=== PATIENT | male | born 1945 | race Caucasian/White ===

== ENCOUNTER 2024-11-23 08:25 | Day surgery (SDC) | payer OTHER ==
[~2024-11-23] VITALS: Ht 177.8 cm; Wt 88.0 kg
[~2024-11-23 08:25] MED LIST: ATORVASTATIN CA40 MG PO; IBLOOD GLUCOSE TEST STRIP 1 EA TEST VI PRN; LACTATED RINGER'S 1,000 ML IV SCH; LIDOCAINE HCL 1% 5 ML SDV INJ ONE; MIDAZOLAM HCL 5 MG/5 ML VIAL IV PRN; fentaNYL citrate 100 MCG/2 ML VIAL IV PRN
[2024-11-23 08:51] VITALS: BP 133/66
[2024-11-23] MEDS ORDERED: BEET ROOT500 MG PO (08:55)
[2024-11-23] MEDS ORDERED: ZINC50 MG PO (08:56)
[2024-11-23] MEDS ORDERED: MAGNESIUM250 M1 PO (08:56)
[2024-11-23] MEDS ORDERED: COQ-10100 MG PO (08:56)
[2024-11-23] MEDS ORDERED: COD LIVER OIL1 EAC1 PO (08:56)
[2024-11-23] MEDS ORDERED: VITAMIN D325 MC2 PO (08:56)
[2024-11-23] MEDS ORDERED: MK-790 MCG PO (08:57)
[2024-11-23] MEDS ORDERED: fentaNYL citrate 100 MCG/2 ML VIAL ONE (09:39)
[2024-11-23] MEDS ORDERED: MIDAZOLAM HCL 5 MG/5 ML VIAL ONE (09:39)
--- NOTE | 2024-11-23 10:32 | NUR ---
11/23/24 1032 [address] Stacy 1022 PT ARRVIED TO PACU ON RA, PT WAKES EASILY AND IS REORIENTED TO PACU. VSS. PT DENIES PAIN AND NAUSEA. PT EASILY FALLS BACK TO SLEEP. 1026 O2 SAT 88% AND 2L NC PLACE, DEEP BREATHING ENCOURAGED AND PT ABLE TO WAKE EASILY AND DEEP BREATHE WHEN ASKED. O2 INCREASED TO HIGH 90S. 1028 PLAN OF CARE DISCUSSED.
[2024-11-23 10:47] VITALS: BP 122/63
--- NOTE | 2024-11-24 06:03 | OR ---
[facility] [address], [place] [address] Signed DATE OF OPERATION: 11/23/2024 SURGEON: Jacqueline Glover MD PREOPERATIVE DIAGNOSIS: 1. Personal history of hyperplastic polyps in 2013 at age 69. 2. Hemorrhoids. POSTOPERATIVE DIAGNOSES: 1. Moderate grade 2 internal hemorrhoids. 2. Minimal sigmoid diverticulosis. 3. 4 mm polyp at 8 cm in rectum. 4. 4 mm polyp at 22 cm in sigmoid colon. PROCEDURE: Colonoscopy with hot biopsy. ESTIMATED BLOOD LOSS: None. INDICATIONS: Truong is a 79-year-old gentleman, who was asked to see me for his third colonoscopy. He actually has excellent functional status and looks younger than his stated age. He had his first colonoscopy in 2009 at the age of 65 at the [facility]. He went back to the [place], had a followup colonoscopy in 2013 at the age of 69. It sounds like he had three hyperplastic polyps removed and some hemorrhoids were noted. He was told to follow up in 10 years. Unfortunately, we were not able to obtain either one of those reports. He said he has no lower GI complaints. There is no family history of colon cancer or polyps. In the office, I gave him a pamphlet on colonoscopy. We had reviewed the nature of the test. There is risk including, but not limited to gas bloating, crampy abdominal pain, bleeding, perforation requiring surgery, and missed diagnosis. We also reviewed the written instructions for the bowel prep line by line. He also understands the need for IV sedation. He said his neighbor would be taking him home. He told me it was okay to discuss results with his neighbor. He had expressed understanding and wished to proceed. DESCRIPTION OF PROCEDURE: Truong was taken into our endoscopy suite and placed in the left lateral decubitus position. He was given a total of 4 mg of Versed and 150 mcg fentanyl to cover the case. A digital rectal exam was performed. He had a couple of grade 2 internal Electronically Signed By: JACQUELINE GLOVER MD 11/24/24 0603 PATIENT NAME: TRUONG GUEVARA OPERATIVE REPORT DATE OF : 45 REPORT #: [id number] PHYSICIAN: JACQUELINE GLOVER MD PCP: NO PRIMARY CARE PHYSICIAN REPORT IS CONFIDENTIAL AND NOT TO BE RELEASED WITHOUT AUTHORIZATION [facility] [address], [place] [address] Signed hemorrhoids that spontaneously reduced. He had good sphincter tone. There were no masses. The adult colonoscope was introduced and advanced all the way around into the cecum under direct visualization of camera. It took a little extra sedation and moving Truong into the supine position with abdominal compression to get the camera directly into the cecum itself. His prep was good. The scope was then slowly withdrawn. We could easily see the appendiceal orifice and ileocecal valve. We took pictures throughout for photodocumentation. We noticed just a few diverticula in the sigmoid colon. They were small in size, few in number and scattered about. The two polyps mentioned above were easily removed with the help of hot biopsy forceps. Upon retroflexion of scope we could see he has moderate internal hemorrhoid columns. After this, the gas was suctioned out, colonoscope removed. Truong tolerated the procedure quite well. RECOMMENDATIONS: I will see Truong back in my office in 7 to 14 days to review his results. These appeared to be hyperplastic polyps currently. Jacqueline Glover MD ALB/MODL /[id number] cc: [place], [place] Patient Chart Jacqueline Glover MD Copies: JACQUELINE GLOVER MD ~ Electronically Signed By: JACQUELINE GLOVER MD 11/24/24 0603 PATIENT NAME: TRUONG GUEVARA [place] OPERATIVE REPORT DATE OF : 45 REPORT #: [id number] PHYSICIAN: JACQUELINE GLOVER MD PCP: NO PRIMARY CARE PHYSICIAN REPORT IS CONFIDENTIAL AND NOT TO BE RELEASED WITHOUT AUTHORIZATION
--- NOTE | 2024-11-25 16:38 | PATH ---
[facility] [address] [facility] [place], [place] [address] Signed SPECIMEN(S): A RECTAL POLYP AT 6 CM SPECIMEN(S): B SIGMOID POLYP AT 22 CM SPECIMEN SOURCE: A. RECTAL POLYP AT 6 CM B. SIGMOID POLYP AT 22 CM CLINICAL HISTORY: History of polyps FINAL PATHOLOGIC DIAGNOSIS: A. Rectal polyp at 6 cm: - Hyperplastic polyp (one fragment). B. Sigmoid polyp at 22 cm: - Hyperplastic polyp (one fragment). JVR:clv MICROSCOPIC EXAMINATION: Histologic sections of all submitted blocks are examined by light microscopy. These findings, together with the gross examination, support the pathologic diagnosis. GROSS DESCRIPTION: A. The specimen, labeled and designated "Paola, rectal polyp at 6 cm," is received in formalin and consists of one arreaga soft tissue fragment, 0.3 cm. Entirely submitted in (A1). B. The specimen, labeled and designated "Paola, sigmoid polyp at 22 cm," is received in formalin and consists of one arreaga soft tissue fragment, 0.3 cm. Entirely submitted in (B1). VB (under the direct supervision of a pathologist) The Gross Description was prepared using a voice recognition system. The report was reviewed for accuracy; however, sound-alike word errors, addition and/or deletions may occur. If there is any question about this report, please contact Client Services. PERFORMING LABORATORY: Technical component was performed by [facility], [address] [place] [id number] (CLIA# [id number]). Professional interpretation was performed by [email or web address], [address] [place] [id number] (CLIA#: [id number]). PATIENT NAME: OSIRIS GUEVARA [place] [facility] DATE OF : 45 REPORT #: [id number] PHYSICIAN: [facility] PCP: NO PRIMARY CARE PHYSICIAN REPORT IS CONFIDENTIAL AND NOT TO BE RELEASED WITHOUT AUTHORIZATION [address] [place], [place] [address] Signed Diagnostician: Joe Farr MD Pathologist Electronically Signed 11/25/2024 Copies: ~ PATIENT NAME: PAOLAOSIRIS PATHOLOGY DATE OF : 45 REPORT #: [id number] PHYSICIAN: [facility] PCP: NO PRIMARY CARE PHYSICIAN REPORT IS CONFIDENTIAL AND NOT TO BE RELEASED WITHOUT AUTHORIZATION
== END 2024-11-23 11:09 | disposition home or self-care (01) ==
LOC: DS 08:25
PROVIDERS: ATTEND Colon & Rectal Surgery
PROC: 0DBN8ZX Excision of Sigmoid Colon, Via Natural or Artificial Opening Endoscopic, Diagnostic (ICD-10-PCS; 2024-11-23)
PROC: 0DBP8ZX Excision of Rectum, Via Natural or Artificial Opening Endoscopic, Diagnostic (ICD-10-PCS; principal; 2024-11-23 09:30)
DX: Z12.11 Encounter for screening for malignant neoplasm of colon (principal); K62.1 Rectal polyp; K63.5 Polyp of colon; K64.1 Second degree hemorrhoids; K57.30 Diverticulosis of large intestine without perforation or abscess without bleeding; E55.9 Vitamin D deficiency, unspecified; E78.5 Hyperlipidemia, unspecified; Z86.0102 Personal history of hyperplastic colon polyps; Z79.899 Other long term (current) drug therapy
CPT/HCPCS: 88305; 99153; G0500; J2250; J3010; J7121